=== PATIENT | female | born 1950 | race Caucasian/White ===

== ENCOUNTER → 2016-04-04 | Outpatient (CLI) | payer BC ==
[~2016-04-04] MED LIST: ASPI-664 PO; CALC600T5 PO; FIBERCHOICE; PHEN100C; RANI150T9 PO; UBID30CA12 PO; ZOC20 PO
--- NOTE | 2016-04-04 17:40 | RADRPT ---
PROCEDURE: CT Sinuses. CLINICAL INDICATION: Facial fullness and pain TECHNIQUE: A CT of the sinuses was performed on a high-resolution multi detector CT scanner utiliz ing thin section axial images. Sagittal and coronal reformatted images were made. The CTDIvol is 2 3.89 mGy and the DLP is 424.13 mGy-cm. COMPARISON: None. FINDINGS: The bilateral maxillary sinuses demonstrate mild chronic mucosal thickening with some nodularity whi ch may represent retention cyst, polyps or polypoid lesions. No acute air fluid levels are present. The ostiomeatal units are patent bilaterally. The ethmoid air cells are clear without significant mucosal thickening or air-fluid levels. The sphenoethmoidal recesses are both patent. The sphenoi d sinuses demonstrate nodular mucosal thickening posteriorly to the left. The frontal recesses are both patent. The frontal sinuses are clear. Mild 2 mm nasal septal deviation convex to the right i s present. Prominent bilateral agger nasi cells are evident. Bilateral sean bullosa is present. The contours of the nasopharynx are normal. IMPRESSION: 1. No evidence for acute sinusitis. 2. Mild chronic sinusitis in the bilateral maxillary and sphenoid sinuses with nodular mucosal thic kening which may represent mucous retention cyst, polyps or polypoid lesions. Consider additional i maging and follow-up as indicated. 3. Patent bilateral ostiomeatal complexes 4. Incidental bilateral contra bullosa 5. Nasal septal deviation and 2 mm to the right. RPTAT: HDC .Sherri Guzman MD, MD Date Time Electronically viewed and signed by .Sherri Guzman MD, MD on 04/04/2016 17:40 .C/
== END | disposition home or self-care (01) ==
LOC: C/S 10:42
PROVIDERS: ATTEND Internal Medicine
DX: J32.0 Chronic maxillary sinusitis (principal); R23.8 Other skin changes; J34.2 Deviated nasal septum
CPT/HCPCS: 70486

== ENCOUNTER → 2016-12-21 | Outpatient (CLI) | payer BC ==
[~2016-12-21] MED LIST changes: +SIMV20TA2 PO; -ZOC20 PO
[2016-12-21 12:14] LABS: BASOPHILS % 0.4 % (0.0-2.0); EOSINOPHILS # 0.1 10^3/ul (0.0-0.5); EOSINOPHILS % 1.5 % (0.0-7.0); HEMATOCRIT 40.6 % (37.0-47.0); HEMOGLOBIN 13.4 g/dl (12.0-16.0); LYMPHOCYTES # 1.7 10^3/ul (0.8-2.9); LYMPHOCYTES % 33.3 % (15.0-51.0); MEAN CORPUSCULAR HEMOGLOBIN 32.6 pg (29.0-33.0); MEAN CORPUSCULAR VOLUME 98.8 fl (82.0-101.0); MEAN PLATELET VOLUME 9.7 fl (7.4-10.4); MONOCYTE # 0.5 10^3/ul (0.3-0.9); MONOCYTES % 10.3 % (0.0-11.0); NEUTROPHIL # 2.8 10^3/ul (1.6-7.5); NEUTROPHILS % 54.3 % (39.0-77.0); PLATELET COUNT 230 10^3/UL (140-415); RED BLOOD COUNT 4.11 10^6/ul (4.20-5.40); RED CELL DISTRIBUTION WIDTH 11.9 % (11.5-14.5); WHITE BLOOD COUNT 5.2 10^3/ul (4.8-10.8)
[2016-12-21 12:18] LABS: ADD UMIC YES; UR ASCORBIC ACID 40 mg/dL (NEGATIVE); UR BILIRUBIN (Dip) NEGATIVE (NEGATIVE); UR BLOOD (Dip) NEGATIVE (NEGATIVE); UR CLARITY SLIGHTLY CLOUDY (CLEAR); UR COLOR YELLOW (YELLOW); UR GLUCOSE (Dip) NEGATIVE (NEGATIVE); UR KETONES (Dip) NEGATIVE (NEGATIVE); UR LEUKOCYTE ESTERASE (Dip) 1+ Leu/ul (NEGATIVE); UR MUCUS FEW /HPF (NONE SEEN); UR NITRITE (Dip) NEGATIVE (NEGATIVE); UR RBC 9 /HPF (0-5); UR SPECIFIC GRAVITY (Dip) 1.013 (1.003-1.030); UR SQUAMOUS EPITHELIAL CELL FEW /HPF (FEW); UR TOTAL PROTEIN (Dip) NEGATIVE (NEGATIVE); UR UROBILINOGEN (Dip) NEGATIVE (NEGATIVE)
--- NOTE | 2016-12-21 18:07 | RADRPT ---
PROCEDURE: XR Chest. CLINICAL INDICATION: Preoperative. TECHNIQUE: Single frontal view. COMPARISON: 03/29/2015. FINDINGS: The lungs are clear. The heart size is normal. There is no pleural effusion. There is no pneumothorax. IMPRESSION: 1. Normal chest radiograph. RPTAT: QQ .Ryan Rodríguez MD, MD Date Time Electronically viewed and signed by .Ryan Rodríguez MD, on 12/21/2016 18:06 .R/
== END | disposition home or self-care (01) ==
LOC: LAB 11:46
PROVIDERS: ATTEND Orthopaedic Surgery Hand Surgery
DX: M65.30 Trigger finger, unspecified finger (principal)
CPT/HCPCS: 71010; 81001; 85025; 93005

== ENCOUNTER → 2017-08-09 | Outpatient (CLI) | END | disposition home or self-care (01) ==

== ENCOUNTER → 2017-09-12 | Outpatient (CLI) | END | disposition home or self-care (01) ==

== ENCOUNTER 2018-01-24 15:13 | Emergency (ER) | END 2018-01-24 18:11 | disposition home or self-care (01) ==

== ENCOUNTER 2018-04-14 05:55 | Day surgery (SDC) | payer BC ==
[2018-04-14] VITALS (9 sets, daily range): BP systolic 82–110; BP diastolic 41–60; PULSE 72–87; RESP 18–34; Ht 165.1 cm; Wt 81.0 kg
[~2018-04-14] VITALS: Ht 165.1 cm; Wt 81.0 kg
[~2018-04-14 05:55] MED LIST changes: -ASPI-664 PO; +ASPI-817 PO; +IBUP-1542 PO; +RANI150T35 PO; -RANI150T9 PO
--- NOTE | 2018-04-14 06:30 | NUR ---
RE: SPOKE WITH DR. PHILIP ANESTHESIOLOGIST MADE AWARE OF PATIENT HAVING FLU LIKE SYMPTOMS, COUGH AND SPUTUM PRODUCTION. ALSO MADE AWARE OF ABNORMAL EKG. ORDERS RECEIVED TO DO CHEST X RAY.
--- NOTE | 2018-04-14 07:17 | PREAC ---
Date/Time of Note Date/Time of Note DATE: 04/14/18 TIME: 07:16 Anesthesia Eval and Record Evaluation Time Pre-Procedure Interview DATE: 04/14/18 TIME: 07:16 Age 68 Sex female NPO: 8 hrs Preoperative diagnosis right carpal tunnel Planned procedure release caroal tunnel r Past Medical History Past Medical History: Includes Cardio: Dyslipidemia Neuro: Seizure disorder Surgery & Anesthesia Issues No known issue Meds Anticoagulation: No Beta Radha within 24 hr: No Reason Beta Radha not given: Pt. not on B-Radha Active Scripts Ibuprofen* (Motrin*) 600 Mg Tab, 600 MG PO Q8, #30 TAB Prov:NILDA SEALS MD 01/24/18 Reported Medications [Fiberchoice] No Conflict Check, for BOWELS 10/11/14 Calcium Carbonate (CALCIUM) 600 Mg Tablet, 600 MG PO 10/11/14 Simvastatin (Simvastatin) 20 Mg Tablet, 20 MG PO HS, TAB 10/11/14 Ubidecarenone (Coq-10) 30 Mg Capsule, 30 MG PO 10/11/14 Aspirin* (Aspirin* EC) 81 Mg Tablet.dr, 81 MG PO DAILY, TAB 10/11/14 Ranitidine Hcl* (Zantac*) 150 Mg Tablet, 150 MG PO HS, TAB 10/11/14 Phenytoin* Sodium Extended (Dilantin*) 100 Mg Capsule 06/08/13 Meds reviewed: Yes Allergies Coded Allergies: Cefadroxil Hydrate (Verified Allergy, Unknown, 10/11/14) Iodinated Contrast- Oral and IV Dye (Verified Allergy, Unknown, 10/11/14) adhesive (Verified Allergy, Unknown, 10/11/14) celecoxib (Verified Allergy, Unknown, 10/11/14) codeine (Verified Allergy, Unknown, 10/11/14) iodine (Verified Allergy, Unknown, 10/11/14) pilocarpine (Verified Allergy, Unknown, "blinding headache", 01/24/18) tetracycline (Verified Allergy, Unknown, 10/11/14) Allergies Reviewed: Yes Labs/Studies Labs Reviewed: Reviewed by anesthesiologist test: N/A Studies: ECG (sr), CXR (nl) Pre-procedure Exam Airway: Adequate mouth opening Mallampati: Mallampati I Teeth: Normal Lung: Normal Heart: Normal ASA Physical Status ASA physical status: 2 Emergency: None Planned Anesthetic General/MAC: LMA Planned Pain Management Parenteral pain med Pre-operative Attestations Prior to commencing anesthesia and surgery, the patient was re-evaluated, there was verification of: *The patient's identity *The results of appropriate recent lab work and preoperative vital signs *The above evaluation not changing prior to induction *Anesthetic plan, risk benefits, alternative and complications discussed with patient/family; questions answered; patient/family understands, accepts and wishes to proceed. VERONICA ROBERTS MD Apr 14, 2018 07:17
[2018-04-14] MEDS ORDERED: MIDAZOLAM 1 MG/ML 2 ML INJ ONE (07:34)
[2018-04-14] MEDS ORDERED: PROPOFOL 20 ML ONE (07:34)
[2018-04-14] MEDS ORDERED: METOCLOPRAMIDE 10 MG INJ ONE (07:35)
[2018-04-14] MEDS ORDERED: FENTAnyl 50 MCG/ML VIAL ONE ×2 (07:35→09:18)
--- NOTE | 2018-04-14 08:54 | HPN ---
Date/Time of Note Date/Time of Note DATE: 04/14/18 TIME: 08:53 Interval H&P Admission Note Pt. seen H&P reviewed: No system changes MAMIE CANTOR MD Apr 14, 2018 08:54
[2018-04-14] MEDS ORDERED: LIDOCAINE 1%/EPI (1:100,000) (MDV) 20 ML ONE (09:13)
[2018-04-14] MEDS ORDERED: DIPHENHYDRAMINE 50 MG INJ IV PRN (09:30)
[2018-04-14] MEDS ORDERED: MEPERIDINE 25 MG INJ IV PRN (09:30)
[2018-04-14] MEDS ORDERED: HYDROmorphONE 1 MG/5 ML IV SYRINGE IV PRN ×3 (09:30)
[2018-04-14] MEDS ORDERED: ONDANSETRON 4 MG INJ IV PRN (09:30)
[2018-04-14] MEDS ORDERED: OXYCODONE/ACETAMINOPHEN (5/325) TAB PO PRN ×2 (09:30)
[2018-04-14] MEDS ORDERED: KETOROLAC 30 MG INJ ONE (09:39)
--- NOTE | 2018-04-14 09:46 | NUR ---
RECEIVED PATIENT FROM OR POST RIGHT HAND CARPAL TUNNEL SYNDROME VIA GURNEY FULLY AWAKE DENIES PAIN EXCEPT FOR TINGLING SENSATION TO HER FINGERS. V/S STABLE . SR. ON ROOM AIR SATURATING 98%.
--- NOTE | 2018-04-14 09:48 | SIPON ---
Date/Time of Note Date/Time of Note DATE: 04/14/18 TIME: 09:46 Operative Report Preoperative Diagnosis right carpal tunnel syndrome Postoperative Diagnosis same Operation/Procedure Performed right carpal stunnel release Surgeon Niecy engineer second assistant staff Anesthesia: moderate sedation Estimated blood loss: none Transfusion Required none Specimen none Grafts/Implants none Complications none MAMIE CANTOR MD Apr 14, 2018 09:48
--- NOTE | 2018-04-14 10:00 | NUR ---
MOVING AFFECTED HAND WELL .DRESSING DRY AND INTACT .STILL DENYING PAIN. RIGHT ARM ELEVATED WITH PILLOW AND ICE PACK APLIED TO RIGHT HAND.
--- NOTE | 2018-04-14 10:05 | NUR ---
C/O HEAD ACHE .OFFERED PAIN MEDICATION .PATIENT REFUCED .SHE SAYS SHE ALWAYS HAVE HEAD ACHE WHEN SHE IS NPO. APPLE JUICE GIVEN.
--- NOTE | 2018-04-14 10:13 | OPR ---
DATE OF OPERATION: 04/14/2018 SURGEON: Mamie Pemberton MD PREOPERATIVE DIAGNOSIS: Right hand carpal tunnel syndrome. POSTOPERATIVE DIAGNOSIS: Right hand carpal tunnel syndrome. PROCEDURE: Carpal tunnel release. ANESTHESIA TECHNIQUE: Sedation plus local anesthetic by the surgeon. SURGEON: Mamie Pemberton MD. LASTING MACHINE OPERATOR HAND METHOD: Staff. BOARD HANDLER: Dr. Elizabeth. SURGICAL PAUSE: I examined the patient in the preop holding area. With a marking pen, I lucy in the planned surgical incision. I showed the planned surgical incision to the patient and to her spouse both, confirmed the operative procedure and planned location. INFORMED CONSENT: At the time we scheduled the operative procedure, we talked to patient about the risks and hazards of surgery discussing operative mortality, wound infection, nerve injury, good result, bad result, potential complications. At the end of that conversation, the patient signed a note confirming the informed consent. DESCRIPTION OF PROCEDURE: The patient was taken to surgery, anesthetized as above, sterile prep and drape performed. Pneumatic tourniquet inflated to 250 mmHg. A 2 cm longitudinal incision made in the palm overlying the transverse carpal ligament. Dissection was carried down to the ligament. A tiny austin was made in the ligament and a Mosquito passed through it, elevated the ligament away from the deep structures, dividing it from that point distally and then proximally, completely releasing the transverse carpal ligament, not touching the internal contents. The wound was closed with interrupted Vicryl Rapide suture and a bulky cotton Gomez type dressing was applied. DISCHARGE MEDICATIONS: 1. Ibuprofen. 2. Keflex. FOLLOWUP: Will be in our office in a week. Dictated By: MAMIE ROSE/RAHEEL Conf#: [id number] DID#: [id number]
--- NOTE | 2018-04-14 10:16 | NUR ---
HEAD ACHE RESOLVED.
--- NOTE | 2018-04-14 10:29 | NUR ---
TRANSFERRED TO [facility] IN STABLE CONDITION .DENIES PAIN. DRESSING DRY AND INTACT NO SIGNS OG BLEEDING .REPORT GIVEN TO JENNA ALEXIS . INFORMED.
--- NOTE | 2018-04-14 10:43 | PAC ---
Date/Time of Note Date/Time of Note DATE: 04/14/18 TIME: 10:43 Post-Anesthesia Notes Post-Anesthesia Note Last documented vital signs Vital Signs Date Temp Pulse Resp B/P (MAP) Pulse Ox O2 O2 Flow FiO2 Time Delivery Rate 04/14/18 76 34 90/41 (57) 96 Room Air 10:21 04/14/18 97.8 09:51 Activity: WNL Respiratory function: WNL Cardiovascular function: WNL Mental status: Baseline Pain reasonably controlled: Yes Hydration appropriate: Yes Nausea/Vomiting absent: No VERONICA ROBERTS MD Apr 14, 2018 10:43
[2018-04-14] MEDS ORDERED: CEFAZOLIN 1 GM INJ ONE (11:10)
== END 2018-04-14 11:16 | disposition home or self-care (01) ==
LOC: SDS 05:55
PROVIDERS: ATTEND Orthopaedic Surgery Hand Surgery
DX: G56.01 Carpal tunnel syndrome, right upper limb (principal)
CPT/HCPCS: 64721; 71045; J0690; J1885; J2250; J2765; J3010